=== PATIENT | female | born 1975 | race Caucasian/White ===

== ENCOUNTER 2018-07-01 11:21 | Outpatient (REF) | payer BC, SELFPAY ==
[2018-07-01 19:26] LABS: Cholesterol 164 mg/dL (50-200); Glucose 86 mg/dL (70-100); HDL Cholesterol 47 mg/dL (40-60); LDL CHOLESTEROL 94 mg/dL (<100); Triglyceride 159 mg/dL (30-150)
== END 2018-07-01 11:22 ==
LOC: NCHCN 11:21
PROVIDERS: PCP Internal Medicine; Visit Provider Nurse Practitioner Family
DX: Z00.00 Encounter for general adult medical examination without abnormal findings (principal); Z13.1 Encounter for screening for diabetes mellitus; Z13.220 Encounter for screening for lipoid disorders
CPT/HCPCS: 80061; 82947; 83721

== ENCOUNTER 2018-08-30 21:19 | Emergency (ER) | payer BC, SELFPAY ==
[2018-08-30 21:27] VITALS: BP 161/93; PULSE 82; RESP 18; TEMP 36.6; O2SAT 98
--- NOTE | 2018-08-30 22:10 | ED.GENADUL_ITS ---
Discharge Plan Disposition Patient Disposition: HOME Condition: Stable Discharge Details Chief Complaint: Laceration Clinical Impression: Laceration Primary Care Provider: Kulwant Garner ED Provider: Winsome Alvarez Home Meds and New Rx's Prescriptions: Continue kyozcalolliv-ppzs-znffx acid [Daily Multiple] 1 EACH tablet 1 tab-cap PO DAILY RF: 0 calcium carbonate-vitamin D3 1 EACH tablet 1 ea PO DAILY RF: 0 levothyroxine 125 MCG tablet 125 mcg PO DAILY Qty: 90 RF: 4 Discharge Instructions Instructions: Care For Your Stitches (ED), Laceration (ED) Additional Instructions: Encourage rest and elevation of your left arm. Keep current dressing on for the next 24 hours. After that time you may wash and cover with a dry bandage. Please keep the wound clean, dry, covered. May wash and running water but do not soak or submerge this will increase her risk of infection. Please monitor for signs of infection including redness, warmth, drainage, increased pain, fever/chills. Or if these or other new/worsening symptoms arise please seek care urgently once again. Tetanus was updated today. Please return in 10 days for suture removal. Referrals: Kulwant Garner [Primary Care Provider] - Discharge Data Discharge Date/Time-TO BE ENTERED AT DEPARTURE: 08/31/18 00:02 Medical Decision Making Patient is a 42-year-old sjmrb-kuin-fpszvcyw female presenting today with chief complaint of laceration to the left anterior forearm. She reports a prior to arrival she was walking when she tripped and fell cutting her arm on a metal door. States she has had minimal bleeding. Reports minimal discomfort. Denies any altered sensation. Denies other injury at the time of the incident. Patient is endorsing laceration. This was evaluated by myself, patient is noted to have a 6 cm curvilinear laceration into the subcutaneous tissue with retraction of the superior tissues. There is a 2 cm gap between the tissue edges. Patient is full range of motion of elbow, wrist, hand. 5 out of 5 surgical elastic knitter compared to the contralateral side. Patient does not believe she is up-to-date on tetanus, reports is been several years since her last. We will update this today. Patient I discussed risk/benefits as well as expected procedural steps associated with closure. She voiced understanding and wishes to proceed. Please see procedure note. Patient tolerated this well wound was explored to base in bloodless field no foreign body or debris noted. Wound was copiously irrigated. Tetanus updated today. Wound was dressed by myself. I advised that she keep this current dressing on for the next 24 hours. After that time, she may wash with running water and reapply a sterile dressing. Advised that she try to keep this clean, dry, covered. Advised that she may return in 10 days for suture removal. We discussed the signs symptoms of infection when to seek care urgently once again. Discussed care of the sutures and education was given. All of her questions and concerns were addressed and she is in agreement this plan. HPI General Mode of arrival: ambulatory . Date/Time Provider Initiated Documentation: 08/30/18 21:53 . Limitations to Documentation: no limitations . Information obtained by: patient . History of Present Illness 42 year old F presents to the emergency department with the chief complaint of laceration left forearm, described as moderate, with intensity rated at 3. Quality is described as aching, and is localized to the left and upper extremity. Patient reports no radiation. Patient started experiencing this minute(s) and it has been constant. No relieving factors improve symptom(s) , No exacerbating factors reported . Patient notes no other symptoms. and other (denies altered sensation in affected hand/wrist); denies cough, fever/ chills, rash and weakness. Patient did receive the following treatments prior to arrival, none Related Data Home Medications Medication Instructions Recorded Confirmed lbuyatozvmzg-ujze-ijjdi acid 1 tab-cap PO DAILY tab-cap 08/31/13 08/30/18 [Daily Multiple] calcium carbonate-vitamin D3 1 ea PO DAILY 06/15/16 08/30/18 levothyroxine 125 mcg PO DAILY #90 tab 08/21/17 08/30/18 Previous Rx's Medication Instructions Recorded levothyroxine 125 mcg PO DAILY #90 tab 08/21/17 Allergies Allergy/AdvReac Type Severity Reaction Status Date / Time aspirin Allergy Intermediate Vomitting Unverified 08/30/18 21:37 General Stated Complaint: Laceration ROB: 4 Review of Systems Constitutional Reports as per HPI Musculoskeletal Reports as per HPI Integumentary/Breasts Reports as per HPI Neurologic Reports as per HPI PFS Family History Mother No problems noted. Social History Smoking/Tobacco Use Status: Current every day Exam Const General: cooperative, healthy appearing, comfortable, no acute distress, well developed and well groomed Nutritional Appearance: average body habitus and well nourished Orientation: alert and awake Eyes General: appearance normal, both eyes and all related structures Resp Effort & Inspection: normal respiratory effort, able to speak in complete sentences and no respiratory distress Cardio Rate: regular rate Rhythm: regular rhythm Skin General skin exam: no erythema, no fluctuance and no induration Trauma: laceration (left forearm 6cm curvilinear laceration into the subcutaneous tissue with separation of wound edges 1cm. Wound is not actively bleeding. No surrounding erythema, warmth or drainage. ) Neuro General: alert and awake Cognition: normal cognition Speech: speech normal Gait: normal gait Motor: muscle tone normal throughout and strength 5/5 throughout (5/5 surgical elastic knitter strength compared to contralateral side) Sensory Exam: no sensory deficits noted Extrem General: abnormal to inspection (laceration as above. ), full ROM, normal capillary refill and no joint enlargement Psych Appearance: grossly normal and well kempt Mental Status: mental status grossly normal Speech and Movement: speech and movement normal Course Vital Signs Temperature 36.6 C 08/30/18 21:27 Pulse 82 08/30/18 21:27 Respiratory Rate 18 08/30/18 21:27 Blood Pressure 161/93 H 08/30/18 21:27 Pulse Oximetry 98 08/30/18 21:27 Temperature 36.6 C 08/30/18 21:27 Temperature Source Temporal Artery Scan 08/30/18 21:27 Pulse 82 08/30/18 21:27 Respiratory Rate 18 08/30/18 21:27 Respiratory Effort 08/30/18 21:27 Blood Pressure 161/93 H 08/30/18 21:27 Pulse Oximetry 98 08/30/18 21:27 Oxygen Delivery Method Room Air 08/30/18 21:27 Oxygen Flow Rate 0 08/30/18 21:27 Pain Level 5 08/30/18 21:27 Procedures Laceration left forearm: Site: upper extremity Side (If applicable): left Size (cm): 6 Description: flap, irregular and clean Depth: simple, single layer Local Anesthetic: Lidocaine 1% and with Epi Amount of anesthesia used (mL): 10 Pre-repair: wound explored, irrigated extensively, deep structures intact and wound margins revised Skin layer closed with: nylon Size (cm): 5-0 Number of sutures: 9 Technique: simple, interrupted and horizontal mattress
== END 2018-08-31 00:02 | disposition home or self-care (01) ==
PROVIDERS: Emergency Provider Physician Assistant; PCP Internal Medicine
DX: S51.812A Laceration without foreign body of left forearm, initial encounter (principal); W01.0XXA Fall on same level from slipping, tripping and stumbling without subsequent striking against object, initial encounter
CPT/HCPCS: 12002; 90471

== ENCOUNTER 2019-10-19 12:45 | Outpatient (REF) | payer BC, SELFPAY ==
[2019-10-19 20:08] LABS: TSH (W/Ref FT4) 1.22 uIU/mL (0.36-3.74)
[2019-10-19 20:14] LABS: Vitamin D 25 Total 29.1 ng/ml (30-100)
== END 2019-10-19 13:05 ==
LOC: NCHCN 12:45
PROVIDERS: PCP Internal Medicine; Visit Provider Nurse Practitioner Family
DX: E03.9 Hypothyroidism, unspecified (principal)
CPT/HCPCS: 82306; 84443

== ENCOUNTER 2019-11-17 08:52 | Outpatient (REF) | payer BC, SELFPAY ==
[2019-11-17 18:27] LABS: Calculated LDL 108 mg/dL; Cholesterol 175 mg/dL (<200); Glucose 99 mg/dL (74-106); HDL Cholesterol 40 mg/dL (40-60); Triglyceride 135 mg/dL (<150)
== END 2019-11-17 09:12 ==
LOC: NCHCN 08:52
PROVIDERS: PCP Internal Medicine; Visit Provider Nurse Practitioner Family
DX: Z00.00 Encounter for general adult medical examination without abnormal findings (principal); Z13.1 Encounter for screening for diabetes mellitus; Z13.220 Encounter for screening for lipoid disorders
CPT/HCPCS: 80061; 82947

== ENCOUNTER 2021-03-16 11:22 | Outpatient (REF) | payer BC, SELFPAY ==
[2021-03-16 15:41] LABS: ALT 26 U/L (14-59); AST 13 U/L (15-37); Albumin 3.6 g/dL (3.4-5.0); Alkaline Phosphatase 109 U/L (46-116); Anion Gap 6.7 mmol/L (3-11); BUN 14 mg/dL (7-18); Bilirubin, Total 0.4 mg/dL (0.2-1.0); CO2 28.3 mmol/L (21.0-32.0); CREATININE 0.7 mg/dL (0.55-1.02); Calcium 8.9 mg/dL (8.5-10.1); Calculated LDL 119 mg/dL (<100); Chloride 106 mmol/L (98-107); Cholesterol 183 mg/dL (<200); Glucose 101 mg/dL (74-106); HDL Cholesterol 42 mg/dL (40-60); Potassium 4.3 mmol/L (3.5-5.1); Sodium 141 mmol/L (136-145); TSH 1.84 uIU/mL (0.36-3.74); Total Protein 6.8 g/dL (6.4-8.2); Triglyceride 112 mg/dL (<150)
[2021-03-16 16:32] LABS: FREE T4 1.16 ng/dL (0.76-1.46)
== END 2021-03-16 11:23 | disposition home or self-care (01) ==
LOC: NCHCN 11:22
PROVIDERS: PCP Internal Medicine; Visit Provider Nurse Practitioner Family
DX: Z00.00 Encounter for general adult medical examination without abnormal findings (principal); E03.9 Hypothyroidism, unspecified; Z68.42 Body mass index [BMI] 45.0-49.9, adult
CPT/HCPCS: 80053; 80061; 84439; 84443

== ENCOUNTER 2021-06-22 10:19 | Outpatient (REF) | payer BC, SELFPAY ==
--- NOTE | 2021-06-22 08:15 | PAPFT_PTH ---
PATIENT: Raquel Ridley LOC: [facility]#:[id number] AGE/SX: 45/F ROOM: RE06/22/[address]: Heydi Ahuja : 1975 BED: DIS: 06/22/2021 SPEC #: [id number] RECD: 06/22/21 18:26 STATUS: CECY [place] #: [id number] MEI: 06/22/21 08:[address] Cytology RECD BY: Gisele Garcia ENTERED: 06/22/21 18:26 SP TYPE: PAPFT LISSETHR DR: Kulwant Garner Tissues: 1 - CX/ENDOCX FOR PAP SMEARS Procedures: PAP THIN PREP/UVM Screening HPV DNA PROBE Comments: [id number]
== END 2021-06-22 10:20 | disposition home or self-care (01) ==
LOC: NCHCN 10:19
PROVIDERS: PCP Internal Medicine; Referring Provider Nurse Practitioner Family; Visit Provider Nurse Practitioner Family
DX: Z12.4 Encounter for screening for malignant neoplasm of cervix (principal); Z01.419 Encounter for gynecological examination (general) (routine) without abnormal findings; Z11.51 Encounter for screening for human papillomavirus (HPV)
CPT/HCPCS: 88142; 87624

== ENCOUNTER 2022-04-12 10:16 | Outpatient (REF) | payer BC, SELFPAY ==
[2022-04-12 18:31] LABS: TSH (W/Ref FT4) 2.44 uIU/mL (0.36-3.74)
== END 2022-04-12 10:17 | disposition home or self-care (01) ==
LOC: NCHCN 10:16
PROVIDERS: PCP Internal Medicine; Visit Provider Nurse Practitioner Family
DX: E03.9 Hypothyroidism, unspecified (principal)
CPT/HCPCS: 84443

== ENCOUNTER → 2022-06-20 02:04 | Outpatient (CLI) | payer BC, SELFPAY ==
--- NOTE | 2022-06-20 13:35 | DI.MAMMO_ITS ---
Exam(s) MAMMO DIAGNOSTIC UNI US BREAST LT LIMITED EXAM: MAMMO DIAGNOSTIC UNI and U/S breast LT limited CLINICAL HISTORY: LUMP IN LT BREAST, LOWER INNER QUADRANT, N63.24. TECHNIQUE: Craniocaudal and mediolateral oblique Full Field Digital left mammography views with Comp uter Aided Diagnosis followed by Tomosynthesis and left breast ultrasound. COMPARISON: Comparison is made with prior examinations. FINDINGS: Mammography/Tomosynthesis: Masses/Architectural Distortion: None seen. Microcalcifictions: No suspicious pleomorphic-type are seen. Skin Thickening/Nipple Retraction: None. Targeted left breast US: Echotexture: Normal appearance of the glandular tissue. Shadowing: No suspicious foci. Cyst: None. Solid lesions: None seen. Ductal dilation: None. IMPRESSION: 1. No evidence of malignancy is noted. 2. Unless there is more urgent need, follow-up screening mammography is recommended, as per [employer] guidelines. 3. The findings were discussed with the patient on the date of the examination. BI-RADS Category 1 - Negative Breast Density - Category A - Almost entirely fatty Breast density Category C or D implies that the patient has dense breast tissue. Dense breast tissue can make it harder to find cancer on a mammogram. Dense breast tissue is also associated with an incr eased risk of breast cancer. This information about the result of the mammogram report was provided to the patient to raise their awareness. Use this report when you speak with the patient about their risks for breast cancer, which includes their family history. At that time, you may recommend additional screening tests (Ultrasoun d or MRI) as these tests may add significant information. A negative radiographic report should not delay biopsy if a dominant or clinically suspicious mass is present. Up to ten percent of cancers are not identified on mammography. A negative report may reinforce clinical impression. Adenosis and dense breasts may obscure an underlying neoplasm. False positive reports average 6 to 10%. Patient will receive a letter notifying them of these results.
== END ==
PROVIDERS: PCP Internal Medicine; Visit Provider Internal Medicine
DX: N63.24 Unspecified lump in the left breast, lower inner quadrant (principal); R92.8 Other abnormal and inconclusive findings on diagnostic imaging of breast
CPT/HCPCS: 76642; 77061; 77065; G0279

== ENCOUNTER 2023-02-18 02:04 | Outpatient (CLI) | payer BC, SELFPAY ==
--- NOTE | 2023-02-18 12:40 | DI.MAMMO_ITS ---
Exam(s) MAMMO SCREENING EXAM: MAMMO SCREENING CLINICAL HISTORY: SCREENING, Z12.39 TECHNIQUE: Mammograms were interpreted according to the usual protocol including computer analysis w [employer] CAD system, tomosynthesis and C-view imaging. COMPARISON: 2014 through 2021 from [facility]. FINDINGS: The breasts are composed of mainly fatty density , Breast Density category A. No suspicious masses or suspicious microcalcifications are seen. No skin thickening or abnormal axillary lymph nodes are seen. There has been no significant change from prior exams. IMPRESSION: BI-RADS Category 1, Negative mammogram Yearly screening mammography is recommended. Breast Density - Category A, fatty density. A negative radiographic report should not delay biopsy if a dominant or clinically suspicious mass is present. Up to ten percent of cancers are not identified on mammography. A negative report may reinforce clinical impression. Adenosis and dense breasts may obscure an underlying neoplasm. False positive reports average 6 to 10%. Patient will receive a letter notifying them of these results.
== END 2023-02-18 02:24 ==
LOC: DI 02:04
PROVIDERS: PCP Internal Medicine; Visit Provider Nurse Practitioner Family
DX: Z12.31 Encounter for screening mammogram for malignant neoplasm of breast (principal)
CPT/HCPCS: 77063; 77067

== ENCOUNTER 2023-06-04 10:15 | Outpatient (REF) | payer BC, SELFPAY ==
--- OUTSIDE RECORDS SUMMARY | 2023-06-04 10:19 | XMS_ITS | Continuity of Care Document ---
Author Name Unknown Organization [facility] Address [address] [place] [address] Care Team Providers Care Social Services Counselor Name Role Phone [facility] Date[facility]s): 10/23/22 - 10/23/[address] [address] Encounter Diagnosis Atypical chest pain(Discharge Diagnosis) - 10/23/22 Discharge Disposition: Home or Self Care Attending Physician: Sherron Godfrey MD Admitting Physician: Sherron Godfrey MD Allergies, Adverse Reactions, Alerts Substance Reaction Severity Status aspirin Moderate Active Immunizations Given and Recorded Vaccine Date Status Refusal Reason SARS-CoV-2 (COVID-19) mRNA-1273 vaccine 12/26/20 R ecorded SARS-CoV-2 (COVID-19) mRNA-1273 vaccine 11/28/20 R ecorded Medications levothyroxine 125 mcg =, Oral, Daily, 0 Refill(s) Start Date: 10/23/22 Status: Ordered Results Laboratory List Name Date Basic Metabolic Panel 10/23/22 CBC w/ Diff 10/23/22 Troponin-I 10/23/22 Automated Diff 10/23/22 Most recent to oldest [Reference Range]: 1 WBC [5.0-10.0 x10^3/mcL] 8.6 x10^3/mcL (10/23/22 10:13 AM) RBC [4.1-5.3 x10^6/mcL] 4.4 x10^6/mcL (10/23/22 10:13 AM) Neutro Auto [40.0-75.0 %] 59.9 % (10/23/22 10:13 AM) Lymph Auto [20.0-50.0 %] 29.6 % (10/23/22 10:13 AM) Rogers Auto [2.0-15.0 %] 6.3 % (10/23/22 10:13 AM) Basophil Auto [0.0-1.0 %] 0.6 % (10/23/22 10:13 AM) BUN [7-18 mg/dL] 13 mg/dL (10/23/22 10:13 AM) Glucose Level [74-106 mg/dL] 99 mg/dL (10/23/22 10:13 AM) Potassium Level [3.5-5.1 mmol/L] 4.0 mmo l/L (10/23/22 10:13 AM) MCV [80.0-96.0] 90.4 (10/23/22 10:13 AM) MCHC [31.0-35.0 g/dL] 34.1 g/dL (10/23/22 10: AM) Troponin-I [0.0-51.4 pg/mL] <5.0 pg/mL (10/23/22 10:13 AM) Sodium Level [136-145 mmol/L] 138 mmol/L (10/23/22 10:13 AM) Hct [37.0-47.0 %] 39.6 % (10/23/22 10:13 AM) Calcium Level [8.5-10.1 mg/dL] 8.7 mg/dL (10/23/22 10:13 AM) MCH [26.0-32.0 pg] 30.8 pg (10/23/22 10:13 AM) Neutro Absolute 5.1 x10^3/mcL *NA* (10/23/22 10:13 AM) Hgb [12.0-16.0 g/dL] 13.5 g/dL (10/23/22 10:13 AM) Platelets [130-450 x10^3/mcL] 323 x10^3/ mcL (10/23/22 10:13 AM) CO2 [21-32 mmol/L] 26 mmol/L (10/23/22 10:13 AM) eGFR Non-AA [>=60] 96 (10/23/22 10:13 AM) eGFR AA [>=60] 96 (10/23/22 10:13 AM) Chloride Level [98-107 mmol/L] 105 mmol/ L (10/23/22 10:13 AM) RDW-CV [11.7-17.0 %] 12.8 % (10/23/22 10:13 AM) Imm Gran Auto [0.0-0.9 %] 0.4 % (10/23/22 10:13 AM) Creatinine Level [0.55-1.02 mg/dL] 0.77 mg/dL (10/23/22 10:13 AM) Eos, Auto [1.0-6.0 %] 3.2 % (10/23/22 10:13 AM) Vital Signs Most recent to oldest [Reference Range]: 1 2 Temperature Temporal Artery [36-38 Deg C ] 35.9 Deg C *LOW* (10/23/22:22 AM) Peripheral Pulse Rate [60-100 bpm] 57 bp m *LOW* (10/23/22:36 AM) 70 bpm (10/23/22:22 AM) Respiratory Rate [12-24 br/min] 20 br/mi n (10/23/22 11:36 AM) 16 br/min (10/23/22:22 AM) Blood Pressure [90-140/60-90 mmHg] 141/6 4mmHg *HI* (10/23/22 11:36 AM) 116/78mmHg (10/23/22:22 AM) Weight Dosing 104.33 kg (10/23/22 9:38 AM) Weight Estimated 104.33 kg (10/23/22:22 AM) Height/Length Dosing 160.020 cm (10/23/22 9:38 AM) Height/Length Estimated 160.020 cm (10/23/22 9:22 AM) Social History Social History Type Response Sex Female Hospital Discharge Instructions Patient Education 10/23/2022 10:12:31 Nonspecific Chest Pain, Adult Nonspecific Chest Pain, Adult Chest pain is an uncomfortable, tight, or painful feeling in the chest. The pain can feel like a crushing, aching, or squeezing pressure. A person can feel a burning or tingling sensation. Chest paincan also be felt in your back, neck, jaw, shoulder, or arm. This pain can be worse when you move, sneeze, or take a deep breath. Chest pain can be caused by a condition that is life-threatening. This must be treated right away. It can also be caused by something that is not life- threatening. If you have chest pain, it can be hard to know the difference, so it is important to get help right away to make sure that you do not have a serious condition. Some life-threatening causes of chest pain include: ??? Heart attack. ??? A tear in the body's main blood vessel (aortic dissection). ??? Inflammation around your heart (pericarditis). ??? A problem in the lungs, such as a blood clot (pulmonary embolism) or a collapsed lung (pneumothorax). Some non life-threatening causes of chest pain include: ??? Heartburn. ??? Anxiety or stress. ??? Damage to the bones, muscles, and cartilage that make up your chest wall. ??? Pneumonia or bronchitis. ??? Shingles infection (varicella-zoster virus). Your chest pain may come and go. It may also be constant. Your health care provider will do tests and other studies to find the cause of your pain. Treatment will depend on the cause of your chest pain. Follow these instructions at home: Medicines ??? Take cqfv-wvv-yqurnzl and prescription medicines only as told by your health care provider. ??? If you were prescribed an antibiotic medicine, take it as told by your health care provider. Donot stop taking the antibiotic even if you start to feel better. Activity ??? Avoid any activities that cause chest pain. ??? Do not lift anything that is heavier than 10 lb (4.5 kg), or the limit that you are told, untilyour health care provider says that it is safe. ??? Rest as directed by your health care provider. ??? Return to your normal activities only as told by your health care provider. Ask your health care provider what activities are safe for you. Lifestyle ??? Do not use any products that contain nicotine or tobacco, such as cigarettes, e-cigarettes, andchewing tobacco. If you need help quitting, ask your health care provider. ??? Do not drink alcohol. ??? Make healthy lifestyle changes as recommended. These may include: ??? Getting regular exercise. Ask your health care provider to suggest some exercises that are safefor you. ??? Eating a heart-healthy diet. This includes plenty of fresh fruits and vegetables, whole grains,low-fat (lean) protein, and low-fat dairy products. A dietitian can help you find healthy eating options. ??? Maintaining a healthy weight. ??? Managing any other health conditions you may have, such as high blood pressure (hypertension) or diabetes. ??? Reducing stress, such as with yoga or relaxation techniques. General instructions ??? Pay attention to any changes in your symptoms. ??? It is up to you to get the results of any tests that were done. Ask your health care provider, or the department that is doing the tests, when your results will be ready. ??? Keep all follow-up visits as told by your health care provider. This is important. ??? You may be asked to go for further testing if your chest pain does not go away. Contact a health care provider if: ??? Your chest pain does not go away. ??? You feel depressed. ??? You have a fever. ??? You notice changes in your symptoms or develop new symptoms. Get help right away if: ??? Your chest pain gets worse. ??? You have a cough that gets worse, or you cough up blood. ??? You have severe pain in your abdomen. ??? You faint. ??? You have sudden, unexplained chest discomfort. ??? You have sudden, unexplained discomfort in your arms, back, neck, or jaw. ??? You have shortness of breath at any time. ??? You suddenly start to sweat, or your skin gets clammy. ??? You feel nausea or you vomit. ??? You suddenly feel lightheaded or dizzy. ??? You have severe weakness, or unexplained weakness or fatigue. ??? Your heart begins to beat quickly, or it feels like it is skipping beats. These symptoms may represent a serious problem that is an emergency. Do not wait to see if the symptoms will go away. Get medical help right away. Call your local emergency services (911 in the [place] Do not drive yourself to the hospital. Summary ??? Chest pain can be caused by a condition that is serious and requires urgent treatment. It may also be caused by something that is not life-threatening. ??? Your health care provider may do lab tests and other studies to find the cause of your pain. ??? Follow your health care provider's instructions on taking medicines, making lifestyle changes, and getting emergency treatment if symptoms become worse. ??? Keep all follow-up visits as told by your health care provider. This includes visits for any further testing if your chest pain does not go away. This information is not intended to replace advice given to you by your health care provider. Make sure you discuss any questions you have with your health care provider. Document Revised: 01/25/2022 Document Reviewed: 01/25/2022 [employer] Patient Education ?? 2021 [employer] Follow Up Care 10/23/2022 09:22:26 With:Follow up with primary care provider Address: When:1 to 2 weeks EKG study * Josee Luna: PERFORM Event Display: Electrocardiogram EKG Authored Date: [id number] Physician Emergency department Note * Sherron Godfrey MD: PERFORM Event Display: ED Note Physician Authored Date: [id number] ESTRELLITA REED :1975 Age:46 years Sex:Female Visit Date:10/23/2022 Primary Care Physician: Kulwant Hicks MD Basic Information Time Seen: Sherron Godfrey MD / 10/23/2022 09:49 Chief Complaint Pt staes she has been having right sided chest pain since saturday. ??Went to PCP and was sent to theER for further evaluation History Of Present Illness: Patient states for the last 3 days she has had chest pain??around 330 this morning she developed??constant chest pain??right thigh going down right arm??no ear nose or throat pain??positive continuedcough after 6 weeks ago of having??an upper respiratory infection??no nausea no vomiting??no extremity edema no skin rashes. ??Patient works at [employer].?? Patient reports her pain went from a 4 out of 10 to a 2 out of 10??she thinks in part because she was told she was not having a heart attack based on her EKG.?? No change in pain with walking up stairs. Review of Systems: see hpi for ros Physical Exam Vitals & Measurements T:??35.9?C ??(Temporal Artery)?? HR:??70??(Peripheral)?? RR:??16?? BP:??116/78?? SpO2:??100%?? HT:??160.020??cm?? WT:??104.33??kg??(Estimated)?? Pain Score:??4?? O2 Therapy:??Room air?? General: Alert and oriented, well nourished,?No??acute distress Eye: PER?Normal??conjunctiva,??No??scleral icterus HENT: Normocephalic,??nontraumatic??Normal hearing Lungs: Clear to auscultation,?Non-labored?? respiration Heart:?Normal?? rate,?Regular??rhythm,?No??murmur,?No??gallop,?No??edema Chest: wall excursion wnl no abnormal movements no obvious deformities Abdomen: Soft, non-tender, non-distended,??No??masses Musculoskeletal:?Normal?? range of motion and strength,?No??tenderness,?No??swelling Skin: Skin is warm, dry and pink,?No??rashes,?No??lesions Neurologic: Awake, alert and oriented X4 Psychiatric: Cooperative, appropriate mood and affect Medical Decision Making: For MDM please see under assessment and plan Procedure No Qualifying Data Assessment/Plan 1.??Atypical chest pain??R07.89 EKG at [facility] and here are reassuring as is blood work??and that pain has been ongoing for 3 days??and blood work as after 6 hours??of continued discomfort.?? Expect this is likely residual from patient's upper respiratory infection??has??still not completely??resolved after 6 weeks.?? Discussed with patient that she may take ibuprofen and Tylenol help with pain and discomfort try heat to the area as needed.?? If patient worsens or does not improve she will return to the emergency department or see primary care provider. Ordered: Discharge Patient, 10/23/22 11:12:00 EST, Home Independently, Constant Indicator ?? Patient Education Nonspecific Chest Pain, Adult Follow Up With When Contact Information Follow up with primary care provider Within 1 to 2 weeks Additional Instructions: Medication Reconciliation Unchanged [id number] Micrograms Oral (given by mouth) every day. Problem List/Past Medical History Ongoing No qualifying data Historical No qualifying data Allergies aspirin Lab Results CBC and Differential?? LATEST RESULTS?? WBC?? 10/23/22 10:13?? 8.6?? RBC?? 10/23/22 10:13?? 4.4?? Hgb?? 10/23/22 10:13?? 13.5?? Hct?? 10/23/22 10:13?? 39.6?? MCV?? 10/23/22 10:13?? 90.4?? MCH?? 10/23/22 10:13?? 30.8?? MCHC?? 10/23/22 10:13?? 34.1?? RDW-CV?? 10/23/22 10:13?? 12.8?? Platelets?? 10/23/22 10:13?? 323?? Neutro Auto?? 10/23/22 10:13?? 59.9?? Lymph Auto?? 10/23/22 10:13?? 29.6?? Rogers Auto?? 10/23/22 10:13?? 6.3?? Eos, Auto?? 10/23/22 10:13?? 3.2?? Basophil Auto?? 10/23/22 10:13?? 0.6?? Imm Gran Auto?? 10/23/22 10:13?? 0.4?? Neutro Absolute?? 10/23/22 10:13?? 5.1? Routine Chemistry?? LATEST RESULTS?? Sodium Level?? 10/23/22 10:13?? 138?? Potassium Level?? 10/23/22 10:13?? 4.0?? Chloride Level?? 10/23/22 10:13?? 105?? CO2?? 10/23/22 10:13?? 26?? BUN?? 10/23/22 10:13?? 13?? Glucose Level?? 10/23/22 10:13?? 99?? Creatinine Level?? 10/23/22 10:13?? 0.77?? eGFR AA?? 10/23/22 10:13?? 96?? eGFR Non-AA?? 10/23/22 10:13?? 96?? Calcium Level?? 10/23/22 10:13?? 8.7? Cardiac Isoenzymes?? LATEST RESULTS?? Troponin-I?? 10/23/22 10:13?? <5.0? Electronically Signed on 10/23/22 11:14 AM Sherron Godfrey MD Emergency department Discharge instructions * Sherron Godfrey MD: PERFORM Event Display: ED Discharge Information Authored Date: [id number] ESTRELLITA REED :1975 Age:46 years Sex:Female Visit Date:10/23/2022 Primary Care Physician: Kulwant Hicks MD Discharge Instructions We would like to thank you for allowing us to assist you with your healthcare needs. The following includes patient education materials and information regarding your injury/illness. Diagnosis from Today's Visit Atypical chest pain Discharge Vitals Temperature??(Temporal Artery) 96.6 ??F (35.9 ??C) Heart Rate??(Peripheral) 70 Respiratory Rate?? 16 Blood Pressure?? 116/78?? Height?? 63.00 in (160.020 cm) Weight??(Estimated) 230.05 lb (104.33 kg) Allergies aspirin What to Do Next Instructions from Your Care Team You may take up to 800 mg of Motrin, Advil??(ibuprofen)??every 8 hours as needed for pain or discomfort??and or??up to??1000 mg??of Tylenol??(acetaminophen) every 6 hours as needed??for pain or discomfort for maximum 4000 mg in 24 hours or you may permanently hurt your liver.?? If you worsen or do not improve please return to the emergency department or see primary care provider. You Need to Schedule the Following Appointments Follow Up with??Follow up with primary care provider When:??Within 1 to 2 weeks You were treated today on an emergency basis; it may be márquez to contact your primary care provider to notify them of your visit today. You may have been referred to your regular doctor or a specialist, please follow up as instructed. If your condition worsens or you can't get in to see the doctor, contact the Emergency Department. Medications What How Much When Instructions Next Dose Unchanged levothyroxine 125 Micrograms Oral (given by mouth) Every day Education Materials Nonspecific Chest Pain, Adult Chest pain is an uncomfortable, tight, or painful feeling in the chest. The pain can feel like a crushing, aching, or squeezing pressure. A person can feel a burning or tingling sensation. Chest paincan also be felt in your back, neck, jaw, shoulder, or arm. This pain can be worse when you move, sneeze, or take a deep breath. Chest pain can be caused by a condition that is life-threatening. This must be treated right away. It can also be caused by something that is not life- threatening. If you have chest pain, it can be hard to know the difference, so it is important to get help right away to make sure that you do not have a serious condition. Some life-threatening causes of chest pain include: ? Heart attack. ? A tear in the body's main blood vessel (aortic dissection). ? Inflammation around your heart (pericarditis). ? A problem in the lungs, such as a blood clot (pulmonary embolism) or a collapsed lung (pneumothorax). Some non life-threatening causes of chest pain include: ? Heartburn. ? Anxiety or stress. ? Damage to the bones, muscles, and cartilage that make up your chest wall. ? Pneumonia or bronchitis. ? Shingles infection (varicella-zoster virus). Your chest pain may come and go. It may also be constant. Your health care provider will do tests and other studies to find the cause of your pain. Treatment will depend on the cause of your chest pain. Follow these instructions at home: Medicines ? Take tnmy-gnl-vgscuom and prescription medicines only as told by your health care provider. ? If you were prescribed an antibiotic medicine, take it as told by your health care provider. Do notstop taking the antibiotic even if you start to feel better. Activity ? Avoid any activities that cause chest pain. ? Do not lift anything that is heavier than 10 lb (4.5 kg), or the limit that you are told, until your health care provider says that it is safe. ? Rest as directed by your health care provider. ? Return to your normal activities only as told by your health care provider. Ask your health care provider what activities are safe for you. Lifestyle ? Do not use any products that contain nicotine or tobacco, such as cigarettes, e- cigarettes, and chewing tobacco. If you need help quitting, ask your health care provider. ? Do not drink alcohol. ? Make healthy lifestyle changes as recommended. These may include: ? Getting regular exercise. Ask your health care provider to suggest some exercises that are safe foryou. ? Eating a heart-healthy diet. This includes plenty of fresh fruits and vegetables, whole grains, low-fat (lean) protein, and low-fat dairy products. A dietitian can help you find healthy eating options. ? Maintaining a healthy weight. ? Managing any other health conditions you may have, such as high blood pressure (hypertension) or diabetes. ? Reducing stress, such as with yoga or relaxation techniques. General instructions ? Pay attention to any changes in your symptoms. ? It is up to you to get the results of any tests that were done. Ask your health care provider, or the department that is doing the tests, when your results will be ready. ? Keep all follow-up visits as told by your health care provider. This is important. ? You may be asked to go for further testing if your chest pain does not go away. Contact a health care provider if: ? Your chest pain does not go away. ? You feel depressed. ? You have a fever. ? You notice changes in your symptoms or develop new symptoms. Get help right away if: ? Your chest pain gets worse. ? You have a cough that gets worse, or you cough up blood. ? You have severe pain in your abdomen. ? You faint. ? You have sudden, unexplained chest discomfort. ? You have sudden, unexplained discomfort in your arms, back, neck, or jaw. ? You have shortness of breath at any time. ? You suddenly start to sweat, or your skin gets clammy. ? You feel nausea or you vomit. ? You suddenly feel lightheaded or dizzy. ? You have severe weakness, or unexplained weakness or fatigue. ? Your heart begins to beat quickly, or it feels like it is skipping beats. These symptoms may represent a serious problem that is an emergency. Do not wait to see if the symptoms will go away. Get medical help right away. Call your local emergency services (911 in the [place] Do not drive yourself to the hospital. Summary ? Chest pain can be caused by a condition that is serious and requires urgent treatment. It may also be caused by something that is not life-threatening. ? Your health care provider may do lab tests and other studies to find the cause of your pain. ? Follow your health care provider's instructions on taking medicines, making lifestyle changes, and getting emergency treatment if symptoms become worse. ? Keep all follow-up visits as told by your health care provider. This includes visits for any further testing if your chest pain does not go away. This information is not intended to replace advice given to you by your health care provider. Make sure you discuss any questions you have with your health care provider. Document Revised: 01/25/2022 Document Reviewed: 01/25/2022 [employer] Patient Education ?? 2021 [employer] Tests Performed Lab Test Name Test Result Date/Time WBC 8.6 x10^3/mcL 10/23/2022 10:13 EST RBC 4.4 x10^6/mcL 10/23/2022 10:13 EST Hgb 13.5 g/dL 10/23/2022 10:13 EST Hct 39.6 % 10/23/2022 10:13 EST MCV 90.4 10/23/2022 10:13 EST MCH 30.8 pg 10/23/2022 10:13 EST MCHC 34.1 g/dL 10/23/2022 10:13 EST RDW-CV 12.8 % 10/23/2022 10:13 EST Platelets 323 x10^3/mcL 10/23/2022 10:13 EST Neutro Auto 59.9 % 10/23/2022 10:13 EST Lymph Auto 29.6 % 10/23/2022 10:13 EST Rogers Auto 6.3 % 10/23/2022 10:13 EST Eos, Auto 3.2 % 10/23/2022 10:13 EST Basophil Auto 0.6 % 10/23/2022 10:13 EST Imm Gran Auto 0.4 % 10/23/2022 10:13 EST Neutro Absolute 5.1 x10^3/mcL 10/23/2022 10:13 EST Sodium Level 138 mmol/L 10/23/2022 10:13 EST Potassium Level 4.0 mmol/L 10/23/2022 10:13 EST Chloride Level 105 mmol/L 10/23/2022 10:13 EST CO2 26 mmol/L 10/23/2022 10:13 EST BUN 13 mg/dL 10/23/2022 10:13 EST Glucose Level 99 mg/dL 10/23/2022 10:13 EST Creatinine Level 0.77 mg/dL 10/23/2022 10:13 EST eGFR AA 96 10/23/2022 10:13 EST eGFR Non-AA 96 10/23/2022 10:13 EST Calcium Level 8.7 mg/dL 10/23/2022 10:13 EST Troponin-I <5.0 pg/mL 10/23/2022 10:13 EST Patient/Pre Sales Network Engineer Signature Patient Name:ESTRELLITA REED I have received this information and my questions have been answered. Patient/Pre Sales Network Engineer Name: Patient/Pre Sales Network Engineer Signature: Relationship to Patient: Witness Name/Signature: Date: Electronically Signed on: 10/23/2022 11:13 ESTSigned by: Emergency department Note * Josee Luna: PERFORM Event Display: ED Notes Authored Date: [id number] * Josee Luna: PERFORM Event Display: ED Notes Authored Date: [id number] Patient Care team information Personnel Name: Kulwant Hicks MD Address: Address: [address] [address]- [place]
[2023-06-04 19:51] LABS: ALT 26 U/L (14-59); AST 23 U/L (15-37); Albumin 3.4 g/dL (3.4-5.0); Alkaline Phosphatase 88 U/L (46-116); Anion Gap 8.2 mmol/L (3-11); BUN 10 mg/dL (7-18); Bilirubin, Total 0.4 mg/dL (0.2-1.0); CO2 26.8 mmol/L (21.0-32.0); CREATININE 0.8 mg/dL (0.55-1.02); Calcium 8.8 mg/dL (8.5-10.1); Chloride 106 mmol/L (98-107); Estimated GFR 90.83 (mL/min/1.73m2); Glucose 96 mg/dL (74-106); Potassium 4.3 mmol/L (3.5-5.1); Sodium 141 mmol/L (136-145); TSH (W/Ref FT4) 2.65 uIU/mL (0.36-3.74); Total Protein 6.5 g/dL (6.4-8.2)
[2023-06-04 22:02] LABS: Hemoglobin A1C 5.3 % (<5.7)
== END 2023-06-04 10:16 | disposition home or self-care (01) ==
LOC: NCHCN 10:15
PROVIDERS: PCP Internal Medicine; Visit Provider Nurse Practitioner Family
DX: E03.9 Hypothyroidism, unspecified (principal); E66.8 Other obesity; Z68.42 Body mass index [BMI] 45.0-49.9, adult; Z13.1 Encounter for screening for diabetes mellitus
CPT/HCPCS: 80053; 83036; 84443

== ENCOUNTER → 2023-09-20 00:51 | Outpatient (CLI) | payer BC, SELFPAY ==
--- NOTE | 2023-09-20 08:39 | DI.RAD_ITS ---
Exam(s) XR SHOULDER RT COMPLETE 2+V EXAM: XR SHOULDER RT COMPLETE 2+V CLINICAL HISTORY: RT SHOULDER PAIN, M25.511,PERSISTENT PAIN, S/P FALL. TECHNIQUE: 2D digital imaging was performed. Five views. COMPARISON: No exams were available for comparison FINDINGS: BONES: No acute fracture is present. No bony destructive lesion is seen. Minimal spurring at the gre ater tuberosity. JOINTS: No dislocation present. Minimal spurring at the AC joint. Glenohumeral joint space is maint ained. SOFT TISSUE: Normal. IMPRESSION: Minimal degenerative changes. No acute abnormality. DATA REPOSITORY: RADIATION DOSE DELIVERED:
== END ==
PROVIDERS: PCP Internal Medicine; Visit Provider Nurse Practitioner Family
DX: M19.011 Primary osteoarthritis, right shoulder (principal)
CPT/HCPCS: 73030

== ENCOUNTER 2023-11-13 20:46 | Outpatient (REF) | payer BC, SELFPAY ==
[2023-11-13 20:25] LABS: FREE T4 1.16 ng/dL (0.76-1.46)
== END 2023-11-13 20:47 | disposition home or self-care (01) ==
LOC: NCHCN 20:46
PROVIDERS: PCP Internal Medicine; Visit Provider Nurse Practitioner Family
DX: E03.9 Hypothyroidism, unspecified (principal)
CPT/HCPCS: 84439; 84443

== ENCOUNTER 2023-11-20 17:37 | Outpatient (REF) | payer BC, SELFPAY ==
[2023-11-20 20:32] LABS: HCT 39.8 % (36.0-46.0); HGB 13.3 g/dL (11.2-15.7); MCH 30.1 pg (27.0-33.0); MCHC 33.4 % (32.0-36.0); MCV 90 fL (80-95); MPV 9.9 fL (8.0-11.0); Platelet Count 375 10^3/uL (130-400); RBC 4.42 10^6/uL (3.93-5.22); RDW 12.9 % (11.7-14.6); RDW-SD 42.5 fL; WBC 11.39 10^3/uL (4.4-10.8)
[2023-11-20 20:55] LABS: ALT 21 U/L (14-59); AST 16 U/L (15-37); Albumin 3.6 g/dL (3.4-5.0); Alkaline Phosphatase 78 U/L (46-116); Amylase 32 U/L (25-115); Anion Gap 5.4 mmol/L (3-11); BUN 9 mg/dL (7-18); Bilirubin, Total 0.5 mg/dL (0.2-1.0); CO2 29.6 mmol/L (21.0-32.0); CREATININE 0.7 mg/dL (0.55-1.02); Calcium 9.3 mg/dL (8.5-10.1); Chloride 104 mmol/L (98-107); Estimated GFR 106.62 (mL/min/1.73m2); Glucose 89 mg/dL (74-106); Lipase 33 U/L (16-77); Sodium 139 mmol/L (136-145); Total Protein 7.1 g/dL (6.4-8.2)
== END 2023-11-20 17:38 | disposition home or self-care (01) ==
LOC: NCHCN 17:37
PROVIDERS: PCP Internal Medicine; Visit Provider Nurse Practitioner Family
DX: R14.0 Abdominal distension (gaseous) (principal)
CPT/HCPCS: 80053; 83690; 85027; 82150

== ENCOUNTER → 2024-03-20 00:33 | Outpatient (CLI) | payer BC, SELFPAY ==
--- NOTE | 2024-03-20 08:45 | DI.MAMMO_ITS ---
Exam(s) MAMMO SCREENING EXAM: MAMMO SCREENING CLINICAL HISTORY: SCREENING, Z12.31 TECHNIQUE: Bilateral full field digital CC and MLO mammographic images were obtained with 3D tomosyn thesis and utilizing computer aided detection (CAD). COMPARISON: Available for comparison. FINDINGS: Masses/Architectural Distortion: None seen. Microcalcifications: No suspicious pleomorphic-type are seen. Skin Thickening/Nipple Retraction: None. IMPRESSION: 1. No significant interval change with no specific features of malignancy noted. 2. Unless there is more urgent need, screening mammography is recommended, as per [place] [place] [employer] guidelines. BI-RADS Category 1 - Negative Breast Density - Category B - Scattered areas of fibroglandular density Breast density category C or D implies that the patient has dense breast tissue. Dense breast tissue is very common and is not abnormal but dense breast tissue can make it harder to find cancer on a ma mmogram. Also, dense breast tissue may increase their breast cancer risk. This information about the result of the mammogram report was provided to the patient to raise their awareness. Use this report when you speak with the patient about their risks for breast cancer, which includes their family hist ory. At that time, you may recommend for more screening tests (Ultrasound or MRI) as they might be us eful based on their risk. A negative radiographic report should not delay biopsy if a dominant or clinically suspicious mass is present. Up to ten percent of cancers are not identified on mammography. A negative report may reinforce clinical impression. Adenosis and dense breasts may obscure an underlying neoplasm. False positive reports average 6 to 10%. Patient will receive a letter notifying them of these results.
== END ==
PROVIDERS: PCP Internal Medicine; Visit Provider Nurse Practitioner Family
DX: Z12.31 Encounter for screening mammogram for malignant neoplasm of breast (principal)
CPT/HCPCS: 77063; 77067

== ENCOUNTER 2024-04-28 12:18 | Outpatient (REF) | payer BC, SELFPAY ==
--- NOTE | 2024-04-28 09:15 | SKI_PTH ---
PATIENT: Raquel Ridley LOC: [facility]#:[id number] AGE/SX: 48/F ROOM: RE04/28/[address]: Heydi Ahuja : 1975 BED: DIS: 04/28/2024 SPEC #: [id number] RECD: 04/28/24 18:30 STATUS: CECY REGabby #: [id number] MEI: 04/28/24 09:[address] RECD BY: Gisele Garcia ENTERED: 04/28/24 18:30 SP TYPE: KELSEA HENSLEY DR: SHMUEL YUEN, FERMIN Tissues: 1 - SKIN BIOPSY(SHAVE/PUNCH) Procedures: SKIN LEVEL 4 Comments: [id number]
[2024-04-28 19:18] LABS: ALT 20 U/L (14-59); AST 15 U/L (15-37); Albumin 3.6 g/dL (3.4-5.0); Alkaline Phosphatase 76 U/L (46-116); Anion Gap 7.3 mmol/L (3-11); BUN 10 mg/dL (7-18); Bilirubin, Total 0.5 mg/dL (0.2-1.0); CO2 27.7 mmol/L (21.0-32.0); CREATININE 0.7 mg/dL (0.55-1.02); Calcium 8.8 mg/dL (8.5-10.1); Calculated LDL 99 mg/dL (<100); Chloride 107 mmol/L (98-107); Cholesterol 164 mg/dL (<200); Estimated GFR 105.95 (mL/min/1.73m2); Glucose 83 mg/dL (74-106); HDL Cholesterol 47 mg/dL (40-60); Potassium 4.3 mmol/L (3.5-5.1); Sodium 142 mmol/L (136-145); TSH (W/Ref FT4) 0.29 uIU/mL (0.36-3.74); Total Protein 6.9 g/dL (6.4-8.2); Triglyceride 94 mg/dL (<150)
[2024-04-28 19:44] LABS: FREE T4 1.09 ng/dL (0.76-1.46)
== END 2024-04-28 12:19 | disposition home or self-care (01) ==
LOC: NCHCN 12:18
PROVIDERS: PCP Nurse Practitioner Family; Visit Provider Nurse Practitioner Family
DX: L82.1 Other seborrheic keratosis (principal); E03.9 Hypothyroidism, unspecified; E66.8 Other obesity
CPT/HCPCS: 80053; 80061; 84439; 84443; 88305

== ENCOUNTER 2024-08-19 15:50 | Outpatient (REF) | payer BC, SELFPAY ==
[2024-08-19 20:00] LABS: TSH 2.18 uIU/Ml (0.36-3.74)
== END 2024-08-19 15:51 | disposition home or self-care (01) ==
LOC: NCHCN 15:50
PROVIDERS: PCP Nurse Practitioner Family; Visit Provider Nurse Practitioner Family
DX: E03.9 Hypothyroidism, unspecified (principal)
CPT/HCPCS: 84443

== ENCOUNTER 2024-12-26 08:28 | Emergency (ER) | payer BC, SELFPAY ==
[2024-12-26 08:29] VITALS: BP 154/82; PULSE 57; RESP 16; TEMP 36.6; O2SAT 99
--- NOTE | 2024-12-26 08:30 | DI.CT_ITS ---
Exam(s) CT ABDOMEN PELVIS W EXAM: CT ABDOMEN PELVIS W CLINICAL HISTORY: right flank and right sided abdominal pain TECHNIQUE: Imaging Protocol: Axial computed tomography images with coronal and sagittal reformatted images were created and reviewed. CONTRAST MATERIAL: Intravenous: Omnipaque 350 Contrast volume:75 mL Oral: No COMPARISON: No exams were available for comparison FINDINGS: ABDOMEN: Lung Bases: No acute abnormality. Liver: Normal density. There are several hepatic cysts. No suspicious hepatic masses present. Portal, Superior Mesenteric, and Splenic Veins: Unremarkable. Gallbladder and Biliary Tract: No radiodense calculus or dilation. Pancreas: Normal density, no abnormal calcifications or inflammatory process. Spleen: Normal. Adrenals: No masses seen. Kidneys: Normal size, contour and axis. No radiodense stones or obstructive uropathy. No masses seen. Abdominal Aorta: Abdominal portion non-dilated. Bowel: There is no evidence of bowel obstruction. There is mild wall thickening in the mid transvers e colon. This likely is due to underdistention. No evidence of appendicitis. A normal appendix is visualized. Peritoneal Cavity: No ascites, collection or mesenteric inflammatory response. No free air. Lymph Nodes: Within normal limits. Bones: Within normal limits for the patient's age. There is L5 spondylolysis and grade 2 spondylolis thesis of L5 on S1. There is resultant marked bilateral neural foraminal stenosis at L5-S1. Soft Tissues: Unremarkable. PELVIS: Bladder: Symmetric distention, no gross wall thickening. Reproductive Organs: There is a 2 cm left ovarian cyst. Lymph Nodes: Within normal limits. Bones: Within normal limits for the patient's age. IMPRESSION: 1. No acute abdominal or pelvic process. 2. Mild thickening of the wall of the mid transverse colon. This is likely due to underdistention bu t colitis or underlying mass cannot be entirely excluded. If clinically appropriate, follow-up with minima or colonoscopy is recommended. 3. No evidence of obstructive uropathy. 4. No evidence of appendicitis. RADIATION DOSE DELIVERED: 507.72mGy.cm Total DLP DATA REPOSITORY: All CT scans at this facility are submitted to the National Radiology Data Registry (NRDR) Dose Index Registry (DIR) with the [employer] (A[employer]). RADIATION OPTIMIZATION: All CT scans at this facility use at least one of these dose optimization te chniques: automated exposure control; mA and/or kV adjustment per patient size (includes targeted exa ms where dose is matched to clinical indication); or iterative reconstruction.
[2024-12-26 08:35] VITALS: BP 154/82; PULSE 57; RESP 16; TEMP 36.6; O2SAT 99
--- NOTE | 2024-12-26 08:43 | ED.GENADUL_ITS ---
Discharge Plan Disposition Patient Disposition: Home Condition: Stable Discharge Details Clinical Impression: Nausea & vomiting, Abdominal pain Primary Care Provider: Kulwant Garner ED Provider: Liam Mancia Home Meds and New Rx's Prescriptions: New ondansetron 4 mg tablet,disintegrating 4 mg PO Q8H PRN (Reason: nausea and vomiting) Qty: 30 0RF Continued levothyroxine 125 MCG tablet 125 mcg PO DAILY Qty: 90 4RF Rx Instructions: 1 tab PO daily Zepbound 7.5 mg/0.5 mL pen injector 7.5 mg SUBCUT QWEEK Patient Comments: INJECT 7.5 MG SUBCUTANEOUSLY EVERY WEEK Discharge Instructions Additional Instructions: Your blood work and CAT scan did not show any concerning findings. You likely are suffering from a viral stomach bug. You can take 1000 mg of acetaminophen and 600 mg of ibuprofen every 6 hours as needed You did have blood cells in your urine, you should have a repeat urinalysis with your primary care provider when you follow-up with them if you are not improving this week I would recommend seeing your primary care provider or express care. If you feel more ill, have severe worsening pain or persistent vomiting despite the medication return to the emergency department for reevaluation HPI General Mode of arrival: ambulatory . Date/Time Provider Initiated Documentation: 12/26/24 08:29 . Limitations to Documentation: no limitations . Information obtained by: patient . History of Present Illness 49 year old F presents to the emergency department with the chief complaint of n/v and abdominal pain, described as moderate, Quality is described as sharp, and is localized to the abdomen. Patient reports no radiation. Patient started experiencing this hour(s) (5) and it has been constant. No relieving factors improve symptom(s), No exacerbating factors reported . Patient notes denies chest pain, fever/chills and shortness of breath. Patient did receive the following treatments prior to arrival, none Related Data Home Medications ?Medication ?Instructions ?Recorded ?Confirmed levothyroxine 125 mcg tablet 125 mcg PO DAILY #90 tabs 08/21/17 12/26/24 ondansetron 4 mg disintegrating 4 mg PO Q8H PRN nausea and 12/26/24 tablet vomiting #30 tabs tirzepatide (weight loss) 7.5 7.5 mg subcut QWEEK 12/26/24 12/26/24 mg/0.5 mL subcutaneous pen injector (Zepbound) Previous Rx's ?Medication ?Instructions ?Recorded levothyroxine 125 mcg tablet 125 mcg PO DAILY #90 tabs 08/21/17 ondansetron 4 mg disintegrating 4 mg PO Q8H PRN nausea and 12/26/24 tablet vomiting #30 tabs Allergies Allergy/AdvReac Type Severity Reaction Status Date / Time aspirin Allergy Intermediate Vomitting Unverified 08/30/18 21:37 General Stated Complaint: Abd Prob ROB: 3 Review of Systems All systems reviewed & are unremarkable except as noted in HPI and below Constitutional Constitutional: Denies chills, Denies fever(s) and Denies weakness Cardiovascular Cardiovascular: Denies chest pain and Denies dyspnea Respiratory Respiratory: Denies cough and Denies dyspnea Gastrointestinal Gastrointestinal: Reports abdominal pain, Reports nausea and Reports vomiting Neurologic Neurologic: Denies weakness Exam Const Orientation: alert HENMT Head: normal to inspection Ears: external ears normal General nose exam: external nose normal Mouth: moist mucous membranes Eyes General: appearance normal, both eyes and all related structures Neck Neck: normal visual inspection Resp Effort & Inspection: normal respiratory effort and able to speak in complete sentences Cardio Rate: regular rate GI Palpation: soft, not firm, no guarding and tender Back/Spine/Pelvis Back: no CVA tenderness Skin General skin exam: no rashes or lesions noted Neuro General: patient alert and patient oriented x3 Extrem General: normal to inspection Psych Mental Status: mental status grossly normal Course Vital Signs Vital signs: Vital Signs Temperature 36.6 C 12/26/24 08:29 Pulse 57 L 12/26/24 08:29 Respiratory Rate 16 12/26/24 08:29 Blood Pressure 154/82 H 12/26/24 08:29 Pulse Oximetry 99 12/26/24 08:29 Temperature 36.6 C 12/26/24 08:35 Temperature Source Oral 12/26/24 08:35 Pulse 57 L 12/26/24 08:35 Respiratory Rate 16 12/26/24 08:35 Blood Pressure 154/82 H 12/26/24 08:35 Blood Pressure Position Sitting 12/26/24 08:35 Pulse Oximetry 99 12/26/24 08:35 Oxygen Delivery Method Room Air 12/26/24 08:35 Oxygen Flow Rate 0 12/26/24 08:35 Pain Level 9 12/26/24 08:35 Medical Decision Making 49-year-old female comes in with 5 to 6 hours of nausea vomiting and abdominal pain. She states yesterday she felt fine, she did have her dose of tirzepatide yesterday but has been on the same dose for a while without issues. She denies any fevers, chills, chest pain, difficulty breathing. She is holding her right side of her abdomen on arrival. She says that the pain radiates from her abdomen to her back. Denies any urinary symptoms. States her stools were soft this morning but not liquid. Her abdomen is soft and nondistended but she is tender in the right upper quadrant and right lower quadrant. No CVA tenderness. Given the nausea vomiting abdominal pain we will proceed with CBC, CMP, lipase and CT abdomen pelvis to evaluate for entities such as cholecystitis versus appendicitis versus kidney stone. Labs without significant findings, has mildly low potassium and is already tolerating p.o. Does have red cells in her urine, advised to have this rech ecked with her primary care provider. CT shows no emergent findings. Thickening in the mid transverse colon which is likely due to underdistention, advise she should have routine colonoscopy as she is 49. She is feeling much better and no longer has any pain or vomiting. I suspect she is starting to have the onset of gastroenteritis. She was stable for discharge and will follow-up with her PCP if not improving, return precautions given Differential Diagnosis Differential Diagnosis: Gastroenteritis, kidney stone, pancreatitis Lab Data Lab results reviewed: Yes I reviewed the patient's lab results. Quality:SDOH Health Related Social Needs: No Data to Display [facility] All Active Problems (Updated 12/26/24 @ 10:49 by Laim Mancia MD) Abdominal pain (Acute) Nausea & vomiting (Acute) Family History Mother No problems noted. Social History Smoking/Tobacco Use Status: Current every day Tobacco Type: cigarettes Smoking risk assessment performed?: Yes Alcohol Intake: never Drug use: Occasionally Substance use type: marijuana Do you feel safe in your relationship?: Yes
[2024-12-26 09:21] LABS: Abs Immature Grans 0.04 10^3/uL (0.0-0.06); Absolute Basophil Count 0.06 10^3/uL (0.0-0.2); Absolute Eosinophil Count 0.22 10^3/uL (0.0-0.7); Absolute Lymphocyte Count 1.47 10^3/uL (1.2-3.4); Absolute Monocyte Count 0.45 10^3/uL (0.1-0.8); Absolute Neutrophil Count 7.39 10^3/uL (1.2-6.7); Basophils % 0.6 %; Eosinophils % 2.3 %; HCT 42.5 % (36.0-46.0); HGB 14.6 g/dL (11.2-15.7); Immature Grans % 0.4 %; Lymphocytes % 15.3 %; MCH 30.4 pg (27.0-33.0); MCHC 34.4 % (32.0-36.0); MCV 89 fL (80-95); MPV 9.1 fL (8.0-11.0); Monocytes % 4.7 %; Neutrophils % 76.7 %; Platelet Count 370 10^3/uL (130-400); RDW-SD 39.5 fL; WBC 9.63 10^3/uL (4.4-10.8)
[2024-12-26] MEDS: Ketorolac 15 MG/ML VIAL IVP (09:26)
[2024-12-26] MEDS: Ondansetron 4 MG/2 ML VIAL IVP (09:26)
[2024-12-26] MEDS: Normal Saline Flush 10 ML SYR IVP (09:27)
[2024-12-26 09:36] LABS: ALT 24 U/L (14-59); AST 15 U/L (15-37); Albumin 4.4 g/dL (3.4-5.0); Alkaline Phosphatase 78 U/L (46-116); Anion Gap 13.7 mmol/L (3-11); BUN 14 mg/dL (7-18); Bilirubin, Total 0.57 mg/dL (0.2-1.0); CO2 24.3 mmol/L (21.0-32.0); CREATININE 0.9 mg/dL (0.55-1.02); Calcium 9.5 mg/dL (8.5-10.1); Chloride 106 mmol/L (98-107); Estimated GFR 77.88 (mL/min/1.73m2); Glucose 121 mg/dL (74-106); Lipase 36 U/L (<78); Magnesium 1.8 mg/dL (1.8-2.4); Potassium 3.2 mmol/L (3.5-5.1); Sodium 144 mmol/L (136-145); Total Protein 8.1 g/dL (6.4-8.2)
[2024-12-26 09:57] LABS: Bilirubin Small (Negative); Blood Large (Negative); Clarity Cloudy (Clear); Glucose 100 mg/dL (Negative); Ketones 80 mg/dL (Negative); Leukocyte Esterase Negative (Negative); Nitrite Negative (Negative); Specific Gravity 1.025 (1.005-1.025); Urobilinogen 0.2 mg/dL (Up to 0.2)
[2024-12-26 10:00] LABS: Bacteria Rare HPF (Negative); C & S Indicated? No; Casts 0-2 Hyaline LPF (Negative); Crystals Rare Calcium Oxalate HPF (Negative); Epithelial Cells Moderate HPF (Negative); Mucus Negative (Negative); RBC >50 HPF (0-2); WBC 0-2 HPF (0-5)
[2024-12-26] MEDS: Normal Saline - Diluent 50 ML VIAL IJ (10:00)
[2024-12-26] MEDS: Omnipaque 350 MG/ML 100 ML BTL 75 ML IJ (10:04)
--- NOTE | 2024-12-26 10:17 | DI.VRAD_ITS ---
PROCEDURE INFORMATION: Exam: CT Abdomen And Pelvis With Contrast Exam date and time: 12/26/2024 10:00 AM Age: 49 years old Clinical indication: Right flank and right sided abdominal pain TECHNIQUE: Imaging protocol: Computed tomography of the abdomen and pelvis with contrast. Contrast material: OMNIPAQUE 350; Contrast volume: 75 ml; Contrast route: INTRAVENOUS (IV); COMPARISON: No relevant prior studies available. FINDINGS: Liver: Low attenuation lesions in the liver too small to accurately characterize on CT. Gallbladder and biliary ducts: No radiodense gallbladder calculi seen. Pancreas: No CT evidence for acute pancreatitis. Spleen: No splenomegaly. Adrenal glands: Nodular left adrenal thickening. Kidneys and ureters: No hydronephrosis or evidence for pyelonephritis. Stomach and bowel: No intestinal obstruction is evident. Areas of apparent mural thickening in the colon commensurate with underdistention. More pronounced thickening in the mid transverse colon. Few colonic diverticula. Appendix: No evidence of appendicitis. Intraperitoneal space: No free air. Vasculature: No abdominal aortic aneurysm. Lymph nodes: Nonspecific mesenteric and retroperitoneal lymph nodes. Urinary bladder: The urinary bladder appears mildly thickened but is incompletely distended. Reproductive: 2.2 cm left ovarian cyst. 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 Anterolisthesis of L5 on S1. Soft tissues: Small fat containing umbilical hernia IMPRESSION: 1. No definite acute findings to explain reported symptoms. 2. Thickening in the mid transverse colon, likely transient/related to underdistention. Cannot exclude an underlying colonic lesion. Follow-up if clinically warranted. 3. Nonacute findings as outlined above. Dictated and Authenticated by: Emerald Figueroa MD. Orderin Blanche Wheeler MD
[2024-12-26 10:57] VITALS: BP 152/80; PULSE 88; RESP 20; TEMP 36.9; O2SAT 98
== END 2024-12-26 11:00 | disposition home or self-care (01) ==
PROVIDERS: Emergency Provider Emergency Medicine; PCP Internal Medicine
DX: R11.2 Nausea with vomiting, unspecified (principal); R10.9 Unspecified abdominal pain
CPT/HCPCS: 36415; 80053; 81025; 83690; 96374; 96375; 99285; 74177; 81003; 81015; 83735; 85025; 99284; J1885; J2405; J3490

== ENCOUNTER 2024-12-29 15:28 | Outpatient (REF) | payer BC, SELFPAY ==
[2024-12-29 19:32] LABS: Bacteria Negative HPF (Negative); C & S Indicated? No; Casts Negative LPF (Negative); Crystals Negative HPF (Negative); Epithelial Cells Negative HPF (Negative); Mucus Negative (Negative); RBC Negative HPF (0-2); WBC Negative HPF (0-5)
== END 2024-12-29 15:29 | disposition home or self-care (01) ==
LOC: NCHCN 15:28
PROVIDERS: PCP Internal Medicine; Visit Provider Nurse Practitioner Family
DX: R31.9 Hematuria, unspecified (principal)
CPT/HCPCS: 81015

== ENCOUNTER 2025-03-26 02:15 | Outpatient (CLI) | payer BC, SELFPAY ==
--- NOTE | 2025-03-26 08:58 | DI.MAMMO_ITS ---
Exam(s) MAMMO SCREENING EXAM: MAMMO SCREENING CLINICAL HISTORY: Screening Z12.39 TECHNIQUE: Mammograms were interpreted according to the usual protocol including computer analysis w [employer] CAD system, tomosynthesis and C-view imaging. COMPARISON: 2014 through 2023 FINDINGS: The breasts are composed of scattered fibroglandular densities, Breast Density category B. No suspicious masses or suspicious microcalcifications are seen. No skin thickening or abnormal axillary lymph nodes are seen. There has been no significant change from prior exams. IMPRESSION: BI-RADS Category 1, Negative mammogram Yearly screening mammography is recommended. Breast Density - Category B, scattered fibroglandular densities. Breast density Category C or D implies that the patient has dense breast tissue. Dense breast tissue can make it harder to find cancer on a mammogram. Dense breast tissue is also associated with an incr eased risk of breast cancer. This information about the result of the mammogram report was provided to the patient to raise their awareness. Use this report when you speak with the patient about their risks for breast cancer, which includes their family history. At that time, you may recommend additional screening tests (Ultrasoun d or MRI) as these tests may add significant information. A negative radiographic report should not delay biopsy if a dominant or clinically suspicious mass is present. Up to ten percent of cancers are not identified on mammography. A negative report may reinforce clinical impression. Adenosis and dense breasts may obscure an underlying neoplasm. False positive reports average 6 to 10%. Patient will receive a letter notifying them of these results.
== END 2025-03-26 02:35 ==
LOC: DI 02:15
PROVIDERS: PCP Internal Medicine; Visit Provider Nurse Practitioner Family
DX: Z12.31 Encounter for screening mammogram for malignant neoplasm of breast (principal); R92.323 Mammographic fibroglandular density, bilateral breasts
CPT/HCPCS: 77063; 77067

== ENCOUNTER 2025-05-26 19:25 | Outpatient (REF) | payer BC, SELFPAY ==
[2025-05-26 20:51] LABS: TSH 0.59 uIU/mL (0.36-3.74)
== END 2025-05-26 19:26 | disposition home or self-care (01) ==
LOC: NCHCN 19:25
PROVIDERS: PCP Internal Medicine; Visit Provider Nurse Practitioner Family
DX: E03.9 Hypothyroidism, unspecified (principal)
CPT/HCPCS: 84443